=== PATIENT | female | born 1995 | race Hispanic/Latino ===

== ENCOUNTER 2017-12-12 23:22 | Emergency (ER) | payer SELFPAY ==
[2017-12-12] MEDS ORDERED: IBUPROFEN 600 MG TABLET ONE (23:45)
[2017-12-12] MEDS ORDERED: DEXAMETHASONE SOD PHOSPHATE 10MG/ML 1ML VIAL ONE (23:45)
== END 2017-12-13 00:02 | disposition home or self-care (01) ==
LOC: EDH 23:22
DX: J02.9 Acute pharyngitis, unspecified (principal); R50.9 Fever, unspecified; E11.9 Type 2 diabetes mellitus without complications; Z79.899 Other long term (current) drug therapy
CPT/HCPCS: 96372; 99283; J1100

== ENCOUNTER 2018-01-29 19:46 | Emergency (ER) | payer SELFPAY ==
[2018-01-29 20:32] LABS: APPEARANCE,URINE Clear (CLEAR); BILIRUBIN,URINE Negative (NEGATIVE); COLOR,URINE Yellow (YELLOW); GLUCOSE, URINE (UA) Negative (NEGATIVE); KETONES,URINE Negative (NEGATIVE); LEUKOCYTE ESTERASE ,URINE Negative (NEGATIVE); NITRATE,URINE Negative (NEGATIVE); OCCULT BLOOD,URINE Negative (NEGATIVE); PROTEIN,URINE Trace (NEGATIVE)
[2018-01-29 20:34] LABS: HCG,QUAL RESULT NEGATIVE (NEGATIVE)
[2018-01-29] MEDS ORDERED: CYCLOBENZAPRINE HCL 10 MG TABLET ONE (20:42)
[2018-01-29 20:43] LABS: BACTERIA,URINE Rare /HPF (None Seen); RBC,URINE 0-1 /HPF (0-1); WBC,URINE 0-1 /HPF (0-1); YEAST,URINE BUDDING Rare /HPF (None Seen)
[2018-01-29 20:44] LABS: MUCUS,URINE Rare LPF (None Seen); SQUAMOUS EPITHELIAL CELL,UR Few /HPF (0-2)
== END 2018-01-29 20:52 | disposition home or self-care (01) ==
LOC: EDH 19:46
DX: M54.41 Lumbago with sciatica, right side (principal)
CPT/HCPCS: 81001; 81025

== ENCOUNTER 2019-03-24 10:13 | Emergency (ER) | payer OTHER ==
[2019-03-24] MEDS ORDERED: DEXAMETHASONE SOD PHOSPHATE 10MG/ML 1ML VIAL ONE (10:33)
[2019-03-24] MEDS ORDERED: DIPHENHYDRAMINE HCL 25 MG CAPSULE ONE (10:33)
== END 2019-03-24 11:36 | disposition home or self-care (01) ==
LOC: EDH 10:13
DX: L25.9 Unspecified contact dermatitis, unspecified cause (principal)
CPT/HCPCS: 96372; 99283; J1100; Q0163

== ENCOUNTER 2019-03-30 02:43 | Emergency (ER) | payer OTHER ==
[2019-03-30 03:00] LABS: APPEARANCE,URINE CLEAR (CLEAR); BILIRUBIN,URINE NEGATIVE (NEGATIVE); COLOR,URINE YELLOW (YELLOW); GLUCOSE, URINE (UA) NEGATIVE (NEGATIVE); KETONES,URINE NEGATIVE (NEGATIVE); LEUKOCYTE ESTERASE ,URINE NEGATIVE (NEGATIVE); NITRATE,URINE NEGATIVE (NEGATIVE); OCCULT BLOOD,URINE LARGE (NEGATIVE); PH,URINE 7.5 (5.0-8.0); PROTEIN,URINE TRACE mg/dL (NEGATIVE); UROBILINOGEN,URINE 0.2 mg/dL (0.2-1.0)
[2019-03-30 03:11] LABS: HCG,QUAL RESULT NEGATIVE (NEGATIVE)
[2019-03-30 03:12] LABS: BACTERIA,URINE Rare /HPF (None Seen); RBC,URINE 51-100 /HPF (0-1); SQUAMOUS EPITHELIAL CELL,UR Few /HPF (0-2)
[2019-03-30] MEDS ORDERED: KETOROLAC TROMETHAMINE 15MG/ML ONE (03:25)
[2019-03-30] MEDS ORDERED: ONDANSETRON HCL 4 MG/2 ML VIAL ONE (03:25)
[2019-03-30 03:27] LABS: BASOPHILS % (AUTO) 0.3 % (0.0-5.0); EOSINOPHILS % (AUTO) 0.5 % (0.0-8.0); HEMATOCRIT 41.9 % (36-48); LYMPHOCYTES % (AUTO) 14.1 % (21.0-51.0); MEAN CORPUSCULAR HEMOGLOBIN 29.3 pg (27.0-33.0); MEAN CORPUSCULAR HGB CONC 34.2 g/dL (32.0-36.0); MEAN CORPUSCULAR VOLUME 85.7 fL (79-99); NEUTROPHILS % (AUTO) 82.1 % (40.0-77.0); PLATELET COUNT (AUTO) 229 K/uL (130-400); RED BLOOD CELL COUNT(AUTO) 4.89 MIL/uL (4.00-5.50); RED CELL DISTRIBUTION WIDTH 13.2 % (11.0-15.5); WHITE BLOOD COUNT (AUTO) 15.9 K/uL (4.8-10.8)
[2019-03-30 03:35] LABS: AMPHET/METH SCREEN,URINE NEGATIVE (NEGATIVE); BARBITURATE SCREEN, URINE NEGATIVE (NEGATIVE); BENZODIAZEPINES SCREEN,URINE NEGATIVE (NEGATIVE); CANNABINOID SCREEN,URINE NEGATIVE (NEGATIVE); COCAINE SCREEN,URINE NEGATIVE (NEGATIVE); OPIATE SCREEN,URINE NEGATIVE (NEGATIVE); PHENCYCLIDINE SCREEN,URINE NEGATIVE (NEGATIVE)
[2019-03-30 03:39] LABS: CREATININE 0.7 mg/dL (0.5-1.5); POTASSIUM 3.7 mmol/L (3.5-5.1)
[2019-03-30 03:42] LABS: ALBUMIN 3.8 g/dL (3.5-5.0); BILIRUBIN,TOTAL 0.3 mg/dL (0.2-1.0); TOTAL PROTEIN, SERUM 7.8 g/dL (6.0-8.3)
== END 2019-03-30 05:00 | disposition home or self-care (01) ==
LOC: EDH 02:43
DX: K29.00 Acute gastritis without bleeding (principal); R31.9 Hematuria, unspecified; Z79.899 Other long term (current) drug therapy
CPT/HCPCS: 36415; 76705; 80053; 80305; 81001; 81025; 83690; 85025; 96361; 96374; 96375; 99285; J1885; J2405

== ENCOUNTER 2024-09-15 14:08 | Emergency (ER) | payer SELFPAY ==
[~2024-09-15] VITALS: Ht 152.4 cm; Wt 81.2 kg
[2024-09-15 14:38] LABS: BASOPHILS # (AUTO) 0.07 K/uL (0.00-0.20); BASOPHILS % (AUTO) 0.7 % (0.0-5.0); EOSINOPHILS # (AUTO) 0.21 K/uL (0.00-0.70); EOSINOPHILS % (AUTO) 2.1 % (0.0-8.0); HEMATOCRIT 37.4 % (36-48); IMMATURE GRANULOCYTE ABSOLUTE 0.04 K/uL (0-1); LYMPHOCYTES # (AUTO) 2.7 K/uL (1.0-4.8); LYMPHOCYTES % (AUTO) 26.5 % (21.0-51.0); MEAN CORPUSCULAR HEMOGLOBIN 29.7 pg (27.0-33.0); MEAN CORPUSCULAR VOLUME 87.6 fL (79-99); MONOCYTES # (AUTO) 0.5 K/uL (0.1-1.0); NEUTROPHILS # (AUTO) 6.7 K/uL (1.8-7.7); NEUTROPHILS % (AUTO) 65.3 % (40.0-77.0); PLATELET COUNT (AUTO) 200 K/uL (130-400); RED BLOOD CELL COUNT(AUTO) 4.27 MIL/uL (4.00-5.50); RED CELL DISTRIBUTION WIDTH 12.3 % (11.0-15.5); WHITE BLOOD COUNT (AUTO) 10.2 K/uL (4.8-10.8)
[2024-09-15 14:43] LABS: APPEARANCE,URINE CLEAR (CLEAR); BILIRUBIN,URINE NEGATIVE (NEGATIVE); COLOR,URINE LIGHT-YELLOW (YELLOW); GLUCOSE, URINE (UA) NEGATIVE (NEGATIVE); KETONES,URINE NEGATIVE (NEGATIVE); LEUKOCYTE ESTERASE ,URINE NEGATIVE Leu/uL (NEGATIVE); NITRATE,URINE NEGATIVE (NEGATIVE); OCCULT BLOOD,URINE NEGATIVE (NEGATIVE); PROTEIN,URINE NEGATIVE (NEGATIVE); UROBILINOGEN,URINE 0.2 mg/dL (0.2-1.0)
[2024-09-15 14:47] LABS: CREATININE 0.6 mg/dL (0.5-1.0); POTASSIUM 3.9 mmol/L (3.5-5.1)
[2024-09-15 14:49] LABS: ADD UA MICROSCOPIC YES
[2024-09-15 14:56] LABS: BACTERIA,URINE RARE /HPF (None Seen); SQUAMOUS EPITHELIAL CELL,UR RARE /HPF (0-2); WBC,URINE 0-1 /HPF (0-1)
--- NOTE | 2024-09-15 15:55 | HMCIMG ---
US OB <14 WEEKS REASON: vaginal bleeding approx 7 weeks COMPARISON: None TECHNIQUE: Routine sonogram was performed. FINDINGS: There is an intrauterine gestational sac. There is a pole corresponding with a 7 week 1 day IUP, heart rate 133 BPM. Uterus appears otherwise normal. Both ovaries are unremarkable. There are no adnexal masses. There is no free fluid in the cul-de-sac. IMPRESSION: 1. Intrauterine gestation 7 weeks 1 day by crown-rump length, heart rate 133 BPM.
--- NOTE | 2024-09-15 16:04 | ERN ---
General Chief Complaint: Vaginal Bleeding Stated Complaint: VAG BLEED 7 WEEKS GESTATION Time Seen by MD: 14:09 Time Seen by Midlevel: 14:09 Source: patient History of Present Illness Initial Comments Patient is a 28-year-old female with no significant past medical history presenting to the emergency department for evaluation of vaginal spotting. Patient reports being approximately seven weeks . The vaginal spotting started yesterday. She has some mild lower abdominal cramping. She specifically denies any fever, chills, dysuria, hematuria, or any other symptoms at this time. She has not seen an OBGYN for this but has an appointment scheduled in two weeks. She is a A0 Allergies: Coded Allergies: No Known Allergies (Unverified Allergy, Unknown, 09/12/16) Past Medical History Past Medical History: No Pertinent History Past Surgical History: None Social History Social History: Negative Female( History) LMP: Jul 26, 2024 : 3 Para: 2 ROS Dictation CONSTITUTIONAL: Negative except for HPI HEAD/FACE: Negative except for HPI EENT: Negative except for HPI RESPIRATORY: Negative except for HPI GASTROINTESTINAL/ABDOMINAL: Negative except for HPI GENITOURINARY: Negative except for HPI MUSCULOSKELETAL: Negative except for HPI INTEGUMENTARY: Negative except for HPI NEUROLOGICAL/PSYCH: Negative except for HPI HEMATOLOGIC/LYMPHATIC: Negative except for HPI All Systems Negative, Except as noted above. 13 point review of systems assessed and all negative except for above. Physical Exam Physical Exam Dictation Vital Signs reviewed General Appearance: Alert, oriented x 3, no acute distress, well developed, nourished. Head and Face: non-traumatic. Eyes: PERRL, pink conjunctivas, eyelid no trauma, anterior chamber with arcus senilis. Ears: Pinnas intact and no signs of trauma or erythema ear canals clear and no discharge TM no erythema Nose: No discharge, no bleeding. Oropharynx: Mouth normal, tongue pink, pharynx clear,no erythema, tonsils no exudates, no abscesses noted, mucous membrane moist Neck: Supple, non-tender, no thyromegaly, no masses, no JVD, no bruits Breast:Deferred Chest:No tenderness, no crepitus, no paradoxical movement, no retractions Lungs:Clear, well-ventilated, symmetric, no rales, no wheezing, no rhonchi, no stridor, good breath sounds bilaterally Heart: Regular rate, regular rhythm, no murmur, no gallops Vascular: no peripheral edema, Abdomen: Soft, positive bowel sounds, nondistended, no guarding, nontender, no rebound, no masses no hepatomegaly, no splenomegaly, no Augustin's sign, no hernias. Rectal: Deferred Genital: Deferred Neurological: Normal speech, motor function intact, sensory function intact Musculoskeletal: Neck nontender, full range of motion, back nontender, full range of motion, Extremities: nontender, full range of motion Skin: Color pink, dry, no turgor, no rash, no lacerations, no abrasions, no contusions. Lymphatic: Deferred Results Laboratory and Microbiology Lab and Micro Result Laboratory Tests Test 09/15/24 12:03 09/15/24 14:27 Urine Color LIGHT-YELLOW (YELLOW) Urine Appearance CLEAR (CLEAR) Urine pH 6.0 (5.0-8.0) Urine Specific [place] 1.009 (1.001-1.031) Urine Protein NEGATIVE mg/dL (NEGATIVE) Urine Glucose (UA) NEGATIVE mg/dL (NEGATIVE) Urine Ketones NEGATIVE mg/dL (NEGATIVE) Urine Occult Blood NEGATIVE (NEGATIVE) Urine Nitrate NEGATIVE (NEGATIVE) Urine Bilirubin NEGATIVE mg/dL (NEGATIVE) Urine Urobilinogen 0.2 mg/dL (0.2-1.0) Urine Leukocyte Esterase NEGATIVE Stiven/uL Urine RBC None /HPF (0-1) Urine WBC 0-1 /HPF (0-1) Urine Squamous Epithelial Cells RARE /HPF (0-2) Urine Bacteria RARE /HPF (None Seen) White Blood Count 10.2 K/uL (4.8-10.8) Red Blood Count 4.27 MIL/uL (4.00-5.50) Hemoglobin 12.7 g/dL (12.0-16.0) Hematocrit 37.4 % (36-48) Mean Corpuscular Volume 87.6 fL (79-99) Mean Corpuscular Hemoglobin 29.7 pg (27.0-33.0) Mean Corpuscular Hemoglobin Concent 34.0 g/dL (32.0-36.0) Red Cell Distribution Width 12.3 % (11.0-15.5) Platelet Count 200 K/uL (130-400) Mean Platelet Volume 9.9 fL (7.5-10.5) Immature Granulocyte % (Auto) 0.4 % (0-1) Neutrophils (%) (Auto) 65.3 % (40.0-77.0) Lymphocytes (%) (Auto) 26.5 % (21.0-51.0) Monocytes (%) (Auto) 5.0 % (3.0-13.0) Eosinophils (%) (Auto) 2.1 % (0.0-8.0) Basophils (%) (Auto) 0.7 % (0.0-5.0) Neutrophils # (Auto) 6.7 K/uL (1.8-7.7) Lymphocytes # (Auto) 2.7 K/uL (1.0-4.8) Monocytes # (Auto) 0.5 K/uL (0.1-1.0) Eosinophils # (Auto) 0.21 K/uL (0.00-0.70) Basophils # (Auto) 0.07 K/uL (0.00-0.20) Absolute Immature Granulocyte (auto 0.04 K/uL (0-1) Nucleated Red Blood Cells 0.0 % (0.0-0.19) Sodium Level 138 mmol/L (136-145) Potassium Level 3.9 mmol/L (3.5-5.1) Chloride Level 103 mmol/L (101-111) Carbon Dioxide Level 32 mmol/L (21-32) Blood Urea Nitrogen 11 mg/dL (7-18) Creatinine 0.6 mg/dL (0.5-1.0) Glomerular Filtration Rate Calc 124 mL/min (>90) Random Glucose 75 mg/dL (70-105) Total Calcium 8.9 mg/dL (8.5-10.1) Human Chorionic Gonadotropin, Quant 94788 mIU/mL (0-5) H Labs Reviewed?: Yes MDM MDM: Patient is a 28-year-old female with no significant past medical history presenting to the emergency department for evaluation of vaginal spotting. Patient reports being approximately seven weeks . The vaginal spotting started yesterday. She has some mild lower abdominal cramping. She specifically denies any fever, chills, dysuria, hematuria, or any other symptoms at this time. She has not seen an OBGYN for this but has an appointment scheduled in two weeks. She is a A0. On physical examination patient is in no acute distress. Vital signs are stable. Patient is alert and oriented x4 and is nontoxic appearing. Abdominal examination is unremarkable. Her blood work today is unremarkable. Her CBC does not show any leukocytosis. Her chemistries are stable. [place] [id number]. Her urinalysis does not show any evidence of infection. No need for antibiotics at this time. Her pelvic ultrasound reveals an intrauterine gestation measuring approximately seven weeks and one day. There is positive heart tones. Lab and imaging were discussed with the patient she was advised to follow up with her OBGYN. She was advised to continue with bedrest until she can see her OBGYN. Return precautions were discussed. Patient is stable for discharge at this time Differential diagnosis: Ectopic , spontaneous , intrauterine , urinary tract infection There are no social concerns with this patient. Prescription drug management Prescriptions will include: None Medical management and examination interpretation discussions were had by me with other qualified healthcare professionals as indicated for the patient's care. ED Course Orders Procedure Category Date Status Time Cbc With Differential LAB 09/15/24 Complete 14:16 Basic Metabolic Panel LAB 09/15/24 Complete 14:16 Hcg,Quantitative LAB 09/15/24 Complete 14:16 Urinalysis Profile LAB 09/15/24 Complete 14:16 Us Ob <14 Weeks US 09/15/24 Resulted 14:18 Vital Signs Date Time Temp Pulse Resp B/P (MAP) Pulse Ox O2 Delivery O2 Flow Rate FiO2 09/15/24 14:45 98.2 80 16 124/78 0 Room Air* 0 21 09/15/24 14:09 98.1 83 20 124/78 100 Room Air 0 DX & DISP Disposition: Discharge Departure Impression: Primary Impression: Intrauterine Additional Impression: First trimester Condition: Stable Additional Instructions: Your blood work today is unremarkable. Your hCG quant is 69,861. Your urinalysis does not show any evidence of infection. Please follow up with your OBGYN as scheduled. If you develop any new or worsening symptoms please report to the ER for further evaluation. Referrals: SANGEETHA FREDERICK (PCP) I have reviewed the case, and I agree with, Diagnosis and Plan I performed the substantive portion of the visit. I have reviewed and personally made and approve the management plan that is documented in the note by myself or the NA. I acknowledge for responsibility for the patient's management plan. JUICE MCCALLUM Sep 15, 2024 16:04
[2024-09-15 16:05] VITALS: BP 120/60; PULSE 80; RESP 16; TEMP 98.3; O2SAT 98
== END 2024-09-15 16:12 | disposition home or self-care (01) ==
LOC: EDH 14:08
DX: O20.9 Hemorrhage in early pregnancy, unspecified (principal); O26.891 Other specified pregnancy related conditions, first trimester; R10.2 Pelvic and perineal pain; Z3A.01 Less than 8 weeks gestation of pregnancy
CPT/HCPCS: 36415; 76801; 80048; 81001; 84702; 85025; 99284